=== PATIENT | male | born 1945 | race Caucasian/White ===

== ENCOUNTER 2021-01-20 17:20 | Emergency (ER) | payer MEDICARE, OTHER ==
[~2021-01-20] VITALS: Ht 180.3 cm; Wt 119.8 kg
[~2021-01-20 17:20] MED LIST: ATENOLOL50 MG PO; COLCRYS0.6 MG PO; CYCLOBENZAPRINE5 MG PO; IBUPROFEN400 MG PO; NORCO 5-325 TA1 EACH PO; QUINAPRIL HCL20 MG PO; TRIAMTERENE-HC1 EAC2 PO
[2021-01-20] MEDS ORDERED: ALLOPURINOL100 MG PO (17:32)
[2021-01-20] MEDS ORDERED: TAMSULOSIN HCL0.4 MG PO (17:34)
--- NOTE | 2021-01-21 07:02 | EKG ---
[facility] [address] [facility] [place], [place] [address] Signed Sinus rhythm with 1st degree AV block Anteroseptal infarct , age undetermined Abnormal ECG No previous ECGs available Confirmed by SALMA SCHULTZ MD ([id number]) on 01/21/2021 7:01:55 AM Electronically Signed By: SALMA SCHULTZ MD 01/21/2102 PATIENT NAME: DARWIN ROSS Electrocardiogram DATE OF : 47 PHYSICIAN: SALMA SCHULTZ MD REPORT #: [id number] REPORT IS CONFIDENTIAL AND NOT TO BE RELEASED WITHOUT AUTHORIZATION
== END 2021-01-20 19:52 | disposition home or self-care (01) ==
LOC: ED 17:20
DX: R00.2 Palpitations (principal); I10 Essential (primary) hypertension; Z87.891 Personal history of nicotine dependence; Z91.030 Bee allergy status; Z79.899 Other long term (current) drug therapy
CPT/HCPCS: 80053; 83735; 84484; 85025; 93005; 93010; 99285-25